=== PATIENT | female | born 1980 | race Caucasian/White ===

== ENCOUNTER 2021-04-16 15:52 | Outpatient (REF) | payer BC, SELFPAY ==
--- NOTE | 2021-04-16 15:15 | PAPFT_PTH ---
PATIENT: Pebbles Melendrez LOC: [facility] U#:[id number] AGE/SX: 40/F ROOM: RE04/16/[address]: Leann Avina APRN : 1980 BED: DIS: 04/16/2021 SPEC #: [id number] RECD: 04/17/21 12:59 STATUS: JAVON REQ #: [id number] CURTIS: 04/16/21 15:[address]: Leann Avina DEPT: [facility] Cytology RECD BY: Jenna Ortez Tissues: 1 - CX/ENDOCX FOR PAP SMEARS Procedures: PAP THIN PREP/UVM Screening HPV DNA PROBE Comments: [id number] (CHLAMYDIA/GC)
[2021-04-20 14:24] LABS: Chlamydia Result Negative (Negative); GC Result Negative (Negative)
== END 2021-04-16 15:53 | disposition home or self-care (01) ==
LOC: LBN 15:52
PROVIDERS: PCP Nurse Practitioner Family; Visit Provider Nurse Practitioner Family
DX: Z12.4 Encounter for screening for malignant neoplasm of cervix (principal); Z11.3 Encounter for screening for infections with a predominantly sexual mode of transmission; Z11.51 Encounter for screening for human papillomavirus (HPV)
CPT/HCPCS: 87491; 87591; 88142; 87624

== ENCOUNTER 2021-04-29 02:02 | Outpatient (CLI) | payer BC, SELFPAY ==
--- NOTE | 2021-04-29 13:00 | DI.MAMMO_ITS ---
Exam(s) MAMMO SCREENING EXAM: MAMMO SCREENING CLINICAL HISTORY: screening,Z12.39 TECHNIQUE: Mammograms were interpreted according to the usual protocol including computer analysis w [facility] CAD system, tomosynthesis and C-view imaging. COMPARISON: FINDINGS: The breasts heterogeneously dense. No dominant mass or clumped microcalcification is identified in e ither breast. There is focal asymmetric density projected in the central portion of the right breast on the CC view. This is more prominent than on prior examination of February 2015. No other signi ficant change in appearance comparison with prior examination. Additional mammographic views are req uested to include CC spot compression view of the right breast to evaluate the possibility of maligna ncy at this site. IMPRESSION: Additional mammographic views of the right breast are requested to include CC spot compression view. Breast ultrasound is recommended as well. BI-RADS Category 0 - Assessment Incomplete: Need additional imaging evaluation Breast Density - Category C - Heterogeneously dense
== END 2021-04-29 02:22 ==
PROVIDERS: PCP Nurse Practitioner Family; Visit Provider Nurse Practitioner Family
DX: Z12.31 Encounter for screening mammogram for malignant neoplasm of breast (principal); R92.8 Other abnormal and inconclusive findings on diagnostic imaging of breast
CPT/HCPCS: 77063; 77067

== ENCOUNTER 2021-05-15 00:23 | Outpatient (CLI) | payer BC, SELFPAY ==
--- NOTE | 2021-05-15 | DI.US_ITS ---
Exam(s) MG MAMMO SCREEN CALL BACK UNI US BREAST RT COMPLETE EXAM: MG MAMMO SCREEN CALL BACK UNI and U/S breast RT complete CLINICAL HISTORY: FOCAL ASYMMETRIC DENSITY RT BREAST. TECHNIQUE: Craniocaudal and mediolateral oblique Full Field Digital Mammography views of the right b reast with Computer Aided Diagnosis followed by Tomosynthesis and right breast ultrasound. COMPARISON: Comparison is made with prior examinations. FINDINGS: Mammography/Tomosynthesis: Masses/Architectural Distortion: None seen. The area of concern in the posterior central right breast does not persist on the additional views. Microcalcifictions: No suspicious pleomorphic-type are seen. Skin Thickening/Nipple Retraction: None. Right breast US: Targeted right breast ultrasound was performed. Echotexture: Normal appearance of the glandular tissue. Shadowing: No suspicious foci. Cyst: There is a 4.7 x 2 x 5 mm cyst in the retroareolar region of the right breast. Solid lesions: None seen. Ductal dilation: None. IMPRESSION: 1. No evidence of malignancy is noted. 2. Unless there is more urgent need, follow-up screening mammography is recommended, as per [employer] guidelines. 3. The findings were discussed with the patient on the date of the examination. BI-RADS Category 2 - Benign Findings Breast Density - Category C - Heterogeneously dense Breast density Category C or D implies that the patient has dense breast tissue. Dense breast tissue can make it harder to find cancer on a mammogram. Dense breast tissue is also associated with an incr eased risk of breast cancer. This information about the result of the mammogram report was provided to the patient to raise their awareness. Use this report when you speak with the patient about their risks for breast cancer, which includes their family history. At that time, you may recommend additional screening tests (Ultrasoun d or MRI) as these tests may add significant information. A negative radiographic report should not delay biopsy if a dominant or clinically suspicious mass is present. Up to ten percent of cancers are not identified on mammography. A negative report may reinforce clinical impression. Adenosis and dense breasts may obscure an underlying neoplasm. False positive reports average 6 to 10%. Patient will receive a letter notifying them of these results.
== END 2021-05-15 00:43 ==
PROVIDERS: PCP Nurse Practitioner Family; Visit Provider Nurse Practitioner Family
DX: Z12.31 Encounter for screening mammogram for malignant neoplasm of breast (principal); R92.8 Other abnormal and inconclusive findings on diagnostic imaging of breast
CPT/HCPCS: 76642; 77063; 77067